=== PATIENT | female | born 1970 | race Caucasian/White ===

== ENCOUNTER 2023-06-28 21:09 | Emergency (ER) | payer OTHER, SELFPAY ==
[2023-06-28 21:12] VITALS: BP 157/101; PULSE 86; RESP 22; TEMP 36.6; O2SAT 98; BMI 37.0
--- NOTE | 2023-06-28 21:24 | CTR_ITS ---
PROCEDURE INFORMATION: Exam: CT Abdomen And Pelvis With Contrast Exam date and time: 06/28/2023 9:50 PM Age: 53 years old Clinical indication: Abdominal pain; Localized; Prior surgery; Surgery date: 1-6 months; Surgery type: Gastric bypass January 2023. Gb; Patient HX: Intractable upper abd pain. ; Additional info: Left upper quadrant abdominal tenderness, history of gastric bypass surgery in January TECHNIQUE: Imaging protocol: Computed tomography of the abdomen and pelvis with contrast. Radiation optimization: All CT scans at this facility use at least one of these dose optimization techniques: automated exposure control; mA and/or kV adjustment per patient size (includes targeted exams where dose is matched to clinical indication); or iterative reconstruction. Contrast material: OMNI 350; Contrast volume: 100 ml; Contrast route: INTRAVENOUS (IV); REPORTING DATA: Count of CT and Cardiac NM exams in prior 12 months: This patient has received 0 known CTs and 0 known cardiac nuclear medicine studies in the 12 months prior to the current study. COMPARISON: CR XR chest 2V* [id number] 08/24/2018 11:27 AM RADIATION DOSE METRICS: Total DLP (mGy-cm): 2361.84 FINDINGS: Lungs: Clear basilar lung parenchyma. Pleural spaces: No pleural fluid. Heart: Normal heart size. Liver: Normal configuration. Homogeneous parenchyma. Gallbladder and bile ducts: Prior cholecystectomy. No biliary tree dilation. Pancreas: Mildly atrophic. No ductal dilation. No visible mass or inflammation. Spleen: Normal. No splenomegaly. Adrenal glands: Normal configuration. Kidneys and ureters: Kidneys enhance symmetrically and demonstrate no evidence of mass, calculus, obstruction, or inflammation. Stomach and bowel: Changes of prior gastric bypass procedure are noted with Marques-en-Y reconstruction. Site of bowel perforation is not clear. No significant diverticular disease. Appendix: Normal appendix is confirmed. Intraperitoneal space: Pneumoperitoneum. Low volume pelvic free fluid. Vasculature: Normal caliber arterial structures. Lymph nodes: No enlarged lymph nodes. Urinary bladder: Unremarkable as visualized. Reproductive: Physiologic appearance for age. Bones/joints: No fracture or destructive lesion. Soft tissues: Loop of nondilated small bowel projects into a supraumbilical ventral hernia. Hernia neck measures 3.[address]/CT abdomen pelvis w con* [id number] IMPRESSION: Exam demonstrates unexplained upper abdominal free air compatible with perforated hollow viscus although the site of perforation is not clear. There could be a marginal ulcer involving the gastrojejunostomy but a discrete ulcer niche is not visible. There is low volume free fluid. No evidence of abscess.
--- NOTE | 2023-06-28 21:25 | W.ED.ABDPA2 ---
Documented by User: [email or web address] Hunter 06/28/23 21:32 HPI - Abdominal Pain General: Chief Complaint: Abdominal Pain Stated Complaint: abdomen pain Time Seen by Provider: 06/28/23 21:14 History of Present Illness: Patient is a 53-year-old female status post gastric bypass surgery in January 2023 who presents to the emergency department for evaluation of left upper quadrant abdominal pain. Patient reports that her symptoms started acutely at approximately 2000 this evening and has continued to progress since onset. Patient denies any known trauma or event that could have elicited her symptoms. Patient states that since the gastric bypass surgery she has had intermittent pains, nausea, and vomiting. Patient states that she has never had pain, however, that has been this severe. She currently rates her pain as a 10 of 10 in severity that she describes as a sharp/stabbing sensation. Patient states that she is in so much pain she feels mildly short of breath. She denies chest pain or palpitations. She denies nausea, vomiting, constipation, diarrhea, dysuria, hematuria, lightheadedness, dizziness, melena, hematochezia, hematemesis, headache, cough, congestion, or any other associated symptoms. No other complaints at this time. Associated Symptoms: Denies chills, constipation, diarrhea, dysuria, fever(s), hematuria, nausea and vomiting Review of Systems General: Reports: 10 or more systems reviewed and unremarkable except in HPI and below Const: Denies: fever(s) or chills Eyes: Denies: change in vision or blurry vision ENMT: Denies: throat pain, ear or mastoid pain, ear discharge, nasal discharge or nasal congestion Card: Denies: chest pain or palpitations Resp: Reports: dyspnea; Denies: productive cough, non-productive cough or wheezing GI: Reports: abdominal pain; Denies: nausea, vomiting, diarrhea or constipation : Denies: flank pain, dysuria or hematuria Musc: Denies: neck pain or back pain Skin/Breast: Denies: rash PFSH ED PFSH: Social History (Updated 02/10/21 @ 14:49 by Reggie Elias LPN) Smoking and tobacco/nicotine status: never used tobacco/nicotine Second hand smoke exposure: No Physical Exam Const: COMMON NORMALS: no acute distress, patient oriented x3 and alert OTHER: Patient is nontoxic and in no acute distress, however, the patient does appear uncomfortable secondary to pain. HENMT: COMMON NORMALS: normocephalic, atraumatic, Normal external nose present, moist oral mucous membranes and oropharynx normal HEAD & SCALP: normocephalic and atraumatic NOSE: Normal external nose present Eye: COMMON NORMALS: Equal, round and reactive pupils present, EOMs intact bilaterally and conjunctivae normal CONJUNCTIVA: Yes conjunctivae normal PUPIL: Yes Equal, round and reactive pupils present Neck/C-Spine: COMMON NORMALS: full ROM Chest: COMMONS NORMALS: normal inspection of the chest Resp: COMMON NORMALS: normal respiratory effort, No retractions, No use of accessory muscles and clear to auscultation bilaterally AUSCULTATION: clear to auscultation bilaterally Cardio: COMMON NORMALS: regular rate, regular rhythm, No gallops present (Cardio), No clicks present (Cardio), No murmurs present (Cardio) and No rub (Cardio) RATE: regular rate RHYTHM: regular rhythm GI: OTHER: Left upper quadrant tenderness noted to palpation. No swelling, erythema, or ecchymosis appreciated to the affected area. Normoactive bowel sounds in all 4 quadrants. No McBurney's point tenderness, Garcia sign, Rovsing sign, or peritoneal signs noted. No evidence of rebound tenderness. No CVA tenderness noted bilaterally. Extremity: OTHER: Moving bilateral upper and lower extremities without weakness or deficit. Neuro: COMMON NORMALS: patient oriented x3 SENSORIUM/ORIENTATION: Yes alert OTHER: Sensation intact to the bilateral upper and lower extremities. No focal neurological deficits noted on exam. Patient is alert and oriented x 4. Course Vital Signs: Vital signs: Vital Signs Temperature 97.8 F 06/28/23 21:12 Pulse Rate 73 06/28/23 22:30 Respiratory Rate 23 H 06/28/23 22:30 Blood Pressure 143/82 06/28/23 22:30 Pulse Oximetry 100 06/28/23 22:30 Oxygen Delivery Me thod Room Air 06/28/23 22:30 MDM - Abdominal Pain Lab Data 06/28/23 21:36 06/28/23 21:36 Labs/Radiology: Radiology Impressions Abdomen/Pelvis CT 06/28/23 21:24 IMPRESSION: Exam demonstrates unexplained upper abdominal free air compatible with perforated hollow viscus although the site of perforation is not clear. There could be a marginal ulcer involving the gastrojejunostomy but a discrete ulcer niche is not visible. There is low volume free fluid. No evidence of abscess. ADDENDUM: 06/28/23 [id number] THIS REPORT CONTAINS FINDINGS THAT MAY BE CRITICAL TO PATIENT CARE. The findings were acknowledged to be understood at 10:07 PM TRANSPORTATION CLERK on 06/28/2023, via the OPS team, by Dr. Cope Laboratory Results WBC 12.03 10^3/uL (3.29-11.43) H 06/28/23 21:36 RBC 4.51 10^6/uL (3.85-5.65) 06/28/23 21:36 Hgb 13.60 g/dL (11.27-16.99) 06/28/23 21:36 Hct 42.1 % (36-47) 06/28/23 21:36 MCV 93.3 fl (85-98) 06/28/23 21:36 MCH 30.2 pg (27-33) 06/28/23 21:36 MCHC 32.3 g/dL (30-55) 06/28/23 21:36 RDW 13.3 % (12.1-15.1) 06/28/23 21:36 Plt Count 407 10^3/cmm (157-399) H 06/28/23 21:36 MPV 9.5 fL (7.4-10.4) 06/28/23 21:36 Neut % (Auto) 66.9 % 06/28/23 21:36 Lymph % (Auto) 22.8 % 06/28/23 21:36 [place] % (Auto) 7.0 % 06/28/23 21:36 Eos % (Auto) 2.7 % 06/28/23 21:36 Baso % (Auto) 0.3 % 06/28/23 21:36 Neut # (Auto) 8.05 10^3/uL (1.8-7.7) H 06/28/23 21:36 Lymph # (Auto) 2.7 10^3/uL (0.8-4.8) 06/28/23 21:36 [place] # (Auto) 0.8 10^3/uL (0.2-0.9) 06/28/23 21:36 Eos # (Auto) 0.3 10^3/uL (0.0-0.8) 06/28/23 21:36 Baso # (Auto) 0.0 10^3/uL (0.0-0.1) 06/28/23 21:36 Nucleated RBC % (auto) 0 % 06/28/23 21:36 Nucleated RBCs # 0.0 /100WBC 06/28/23 21:36 Sodium 138 mmol/L (136-145) 06/28/23 21:36 Potassium 3.9 mmol/L (3.5-5.1) 06/28/23 21:36 Chloride 104 mmol/L (98-107) 06/28/23 21:36 Carbon Dioxide 24 mmol/L (22-29) 06/28/23 21:36 Anion Gap 13.9 (5-19) 06/28/23 21:36 BUN 14 mg/dL (6-20) 06/28/23 21:36 Creatinine 0.5 mg/dL (0.5-0.9) 06/28/23 21:36 GFR Calculation 128.6 mL/min (90-130) 06/28/23 21:36 Glucose 137 mg/dL (65-115) H 06/28/23 21:36 Calculated Osmolality 289 mOsm/kg (285-295) 06/28/23 21:36 Lactic Acid 1.4 mmol/L (0.5-2.2) 06/28/23 21:54 Calcium 9.1 mg/dL (8.5-10.5) 06/28/23 21:36 Total Bilirubin 0.2 mg/dL (0.15-1.2) 06/28/23 21:36 AST 30 U/L (0-32) 06/28/23 21:36 ALT 21 U/L (0-33) 06/28/23 21:36 Alkaline Phosphatase 127 U/L (35-105) H 06/28/23 21:36 Total Protein 7.0 g/dL (6.6-8.7) 06/28/23 21:36 Albumin 3.7 g/dL (3.5-5.2) 06/28/23 21:36 Globulin 3.3 g/dL (1.3-4.6) 06/28/23 21:36 Lipase 15 U/L (13-60) 06/28/23 21:36 Discharge Plan Discharge Patient Disposition: Xfer Short-Term Hosp Clinical Impression: Bowel perforation Condition: Stable Referrals: Seth Ledesma MD [Primary Care Provider] - Coding Level of Care Code ED Medical Office Manager for Chg Fwd Documented by User: Gabriele Cope MD 06/28/23 23:15 HPI - Abdominal Pain General: Chief Complaint: Abdominal Pain Stated Complaint: abdomen pain Time Seen by Provider: 06/28/23 21:14 [facility] ED PFSH: Social History (Updated 02/10/21 @ 14:49 by Reggie Elias LPN) Smoking and tobacco/nicotine status: never used tobacco/nicotine Second hand smoke exposure: No Course Reevaluation(s): Reevaluation #1: I spoke to our surgeon Dr. Campos who recommended transfer due to her having a history of a Marques-en-Y with perforation felt that she needed to be somewhere with bariatric surgery capabilities. I have spoken to [facility] where she had the surgery I spoke with the sustainability project coordinator and the surgeon there she states the ER is on divert they are not able to take her to the ER they do not have ICU beds either 99. I tried [facility] they do not have beds we will attempt to transfer elsewhere at this time patient has been stable while here. Time: 22:30 Vital Signs: Vital signs: Vital Signs Temperature 97.8 F 06/28/23 21:12 Pulse Rate 73 06/28/23 22:30 Respiratory Rate 23 H 06/28/23 22:30 Blood Pressure 143/82 06/28/23 22:30 Pulse Oximetry 100 06/28/23 22:30 Oxygen Delivery Me thod Room Air 06/28/23 22:30 MDM - Abdominal Pain Medical Decision Making Patient presents here with history of gastric bypass Marques-en-Y surgery in January [facility] [place] she had severe pain that started 8 PM she does have a perforation lactate here is normal blood pressure has been stable I did speak to our surgeon Dr. Campos who felt she needed to see bariatric due to the complications of Marques-en-Y when I originally spoke to [facility] they denied do to being on ER divert. I attempted to transfer elsewhere and was denies by [facility] . I called [facility] back and spoke to dr. guerra again and they were able to make a bed in their icu and will transfer there. Medical Records I reviewed the patient's medical records. Lab Data I reviewed the patient's lab results. 06/28/23 21:36 06/28/23 21:36 Labs/Radiology: Radiology Impressions Abdomen/Pelvis CT 06/28/23 21:24 IMPRESSION: Exam demonstrates unexplained upper abdominal free air compatible with perforated hollow viscus although the site of perforation is not clear. There could be a marginal ulcer involving the gastrojejunostomy but a discrete ulcer niche is not visible. There is low volume free fluid. No evidence of abscess. ADDENDUM: 06/28/232209 THIS REPORT CONTAINS FINDINGS THAT MAY BE CRITICAL TO PATIENT CARE. The findings were acknowledged to be understood at 10:07 PM TRANSPORTATION CLERK on 06/28/2023, via the OPS team, by Dr. Cope Laboratory Results WBC 12.03 10^3/uL (3.29-11.43) H 06/28/23 21:36 RBC 4.51 10^6/uL (3.85-5.65) 06/28/23 21:36 Hgb 13.60 g/dL (11.27-16.99) 06/28/23 21:36 Hct 42.1 % (36-47) 06/28/23 21:36 MCV 93.3 fl (85-98) 06/28/23 21:36 MCH 30.2 pg (27-33) 06/28/23 21:36 MCHC 32.3 g/dL (30-55) 06/28/23 21:36 RDW 13.3 % (12.1-15.1) 06/28/23 21:36 Plt Count 407 10^3/cmm (157-399) H 06/28/23 21:36 MPV 9.5 fL (7.4-10.4) 06/28/23 21:36 Neut % (Auto) 66.9 % 06/28/23 21:36 Lymph % (Auto) 22.8 % 06/28/23 21:36 [place] % (Auto) 7.0 % 06/28/23 21:36 Eos % (Auto) 2.7 % 06/28/23 21:36 Baso % (Auto) 0.3 % 06/28/23 21:36 Neut # (Auto) 8.05 10^3/uL (1.8-7.7) H 06/28/23 21:36 Lymph # (Auto) 2.7 10^3/uL (0.8-4.8) 06/28/23 21:36 [place] # (Auto) 0.8 10^3/uL (0.2-0.9) 06/28/23 21:36 Eos # (Auto) 0.3 10^3/uL (0.0-0.8) 06/28/23 21:36 Baso # (Auto) 0.0 10^3/uL (0.0-0.1) 06/28/23 21:36 Nucleated RBC % (auto) 0 % 06/28/23 21:36 Nucleated RBCs # 0.0 /100WBC 06/28/23 21:36 Sodium 138 mmol/L (136-145) 06/28/23 21:36 Potassium 3.9 mmol/L (3.5-5.1) 06/28/23 21:36 Chloride 104 mmol/L (98-107) 06/28/23 21:36 Carbon Dioxide 24 mmol/L (22-29) 06/28/23 21:36 Anion Gap 13.9 (5-19) 06/28/23 21:36 BUN 14 mg/dL (6-20) 06/28/23 21:36 Creatinine 0.5 mg/dL (0.5-0.9) 06/28/23 21:36 GFR Calculation 128.6 mL/min (90-130) 06/28/23 21:36 Glucose 137 mg/dL (65-115) H 06/28/23 21:36 Calculated Osmolality 289 mOsm/kg (285-295) 06/28/23 21:36 Lactic Acid 1.4 mmol/L (0.5-2.2) 06/28/23 21:54 Calcium 9.1 mg/dL (8.5-10.5) 06/28/23 21:36 Total Bilirubin 0.2 mg/dL (0.15-1.2) 06/28/23 21:36 AST 30 U/L (0-32) 06/28/23 21:36 ALT 21 U/L (0-33) 06/28/23 21:36 Alkaline Phosphatase 127 U/L (35-105) H 06/28/23 21:36 Total Protein 7.0 g/dL (6.6-8.7) 06/28/23 21:36 Albumin 3.7 g/dL (3.5-5.2) 06/28/23 21:36 Globulin 3.3 g/dL (1.3-4.6) 06/28/23 21:36 Lipase 15 U/L (13-60) 06/28/23 21:36 All radiology interpretation(s) finalized by discharge Critical Care Time Critical Care Time: Critical Care Time: Yes Total Critical Care Time: 40 Attestation: The high probability of a clinically significant, sudden or life threatening deterioration of the patient's gi system(s) required my full and direct attention, intervention and personal management. The critical care time is as shown. This time is in addition to time spent performing any reported procedures but includes the following: [x] Data and vital sign review and interpretation [x] Patient assessment, examination and intervention [x] Documentation [x] Medication orders and management Discharge Plan Discharge Patient Disposition: Xfer Short-Term Hosp Clinical Impression: Bowel perforation Condition: Stable Referrals: Seth Ledesma MD [Primary Care Provider] - Coding Level of Care Code ED Medical Office Manager for Massimo Meyer
[2023-06-28] MEDS: sodium chloride 0.9% 1,000 ML 999 ML IV (21:35)
[2023-06-28] MEDS: ondansetron 2 mg/ML SDV 2 mL 4 MG IVP (21:36)
[2023-06-28 21:38] VITALS: RESP 16; O2SAT 100
[2023-06-28] MEDS: morphine 4 mg/mL SDV 1 mL IVP (21:38)
[2023-06-28 21:44] LABS: Basophils % 0.3 %; Eosinophils # 0.3 10^3/uL (0.0-0.8); Eosinophils % 2.7 %; Hematocrit 42.1 % (36-47); Lymphocytes # 2.7 10^3/uL (0.8-4.8); Lymphocytes % 22.8 %; Mean Corpuscular HGB Conc 32.3 g/dL (30-55); Mean Corpuscular Hemoglobin 30.2 pg (27-33); Mean Corpuscular Volume 93.3 fl (85-98); Mean Platelet Volume 9.5 fL (7.4-10.4); Monocytes # 0.8 10^3/uL (0.2-0.9); Neutrophils # 8.05 10^3/uL (1.8-7.7); Neutrophils % 66.9 %; Nucleated Red Blood Cells % 0 %; Platelet Count 407 10^3/cmm (157-399); Red Blood Count 4.51 10^6/uL (3.85-5.65); Red Cell Distribution Width 13.3 % (12.1-15.1); White Blood Count 12.03 10^3/uL (3.29-11.43)
[2023-06-28 21:46] VITALS: RESP 18
[2023-06-28] MEDS: HYDROmorphone 1 mg/mL INJ 1 mL IVP ×3 (21:46→23:18)
[2023-06-28] MEDS: iohexol 350 mg/mL 500 mL Btl (per mL) IV (21:54)
[2023-06-28 22:15] LABS: Alanine Aminotransferase 21 U/L (0-33); Albumin Level 3.7 g/dL (3.5-5.2); Alkaline Phosphatase 127 U/L (35-105); Blood Urea Nitrogen 14 mg/dL (6-20); Calcium 9.1 mg/dL (8.5-10.5); Carbon Dioxide 24 mmol/L (22-29); Chloride 104 mmol/L (98-107); Globulin 3.3 g/dL (1.3-4.6); Glomerular Filtration Rate 128.6 mL/min (90-130); Glucose 137 mg/dL (65-115); Lipase 15 U/L (13-60); Osmolality Calculated 289 mOsm/kg (285-295); Sodium 138 mmol/L (136-145); Total Bilirubin 0.2 mg/dL (0.15-1.2)
[2023-06-28 22:17] LABS: Lactic Sepsis W/Reflex 1.4 mmol/L (0.5-2.2)
[2023-06-28] MEDS: piperacillin-tazobactam 3.375 GM in sodium chloride 0.9% (plus) 50 ML IV (22:19)
[2023-06-28 22:22] LABS: Anion Gap 13.9 (5-19); Aspartate Amino Transferase 30 U/L (0-32); Potassium 3.9 mmol/L (3.5-5.1)
[2023-06-28 22:30] VITALS: BP 143/82; PULSE 73; RESP 23; O2SAT 100
[2023-06-28] MEDS: pantoprazole 40 mg SDV 80 MG IVP (23:17)
[2023-06-28 23:18] VITALS: RESP 22
[2023-06-28] MEDS: LORazepam 2 mg/mL INJ 1 mL 1 MG IVP (23:48)
[2023-06-28] MEDS: pantoprazole 40 MG in sodium chloride 0.9% (plus) 100 ML 20 MG IV (23:48)
== END 2023-06-29 00:16 | disposition short-term general hospital (02) ==
PROVIDERS: Physician Assistant; Emergency Provider Emergency Medicine; PCP Family Medicine
DX: K63.1 Perforation of intestine (nontraumatic) (principal); Z98.84 Bariatric surgery status
CPT/HCPCS: 74177; 80053; 83605; 83690; 85025; 96365; 96375; 99285; C9113; J1170; J2060; J2270; J2405; J2543; J7030; Q9967

== ENCOUNTER 2023-10-10 15:05 | Emergency (ER) | payer OTHER, SELFPAY ==
[2023-10-10] VITALS (14 sets, daily range): BP systolic 123–179; BP diastolic 78–114; PULSE 71–100; RESP 18; TEMP 37.2; O2SAT 97–100
[2023-10-10 17:15] LABS: Basophils # 0.1 10^3/uL (0.0-0.1); Basophils % 0.7 %; Eosinophils # 0.2 10^3/uL (0.0-0.8); Eosinophils % 2.5 %; Hematocrit 40.6 % (36-47); Lymphocytes # 1.8 10^3/uL (0.8-4.8); Lymphocytes % 19.8 %; Mean Corpuscular Hemoglobin 29.5 pg (27-33); Mean Corpuscular Volume 92.1 fl (85-98); Mean Platelet Volume 9.6 fL (7.4-10.4); Monocytes % 11.3 %; Neutrophils # 5.99 10^3/uL (1.8-7.7); Neutrophils % 65.5 %; Nucleated Red Blood Cells % 0 %; Platelet Count 343 10^3/cmm (157-399); Red Blood Count 4.41 10^6/uL (3.85-5.65); Red Cell Distribution Width 14.6 % (12.1-15.1); White Blood Count 9.14 10^3/uL (3.29-11.43)
[2023-10-10 17:37] LABS: Alanine Aminotransferase 24 U/L (0-33); Alkaline Phosphatase 149 U/L (35-105); Aspartate Amino Transferase 26 U/L (0-32); Blood Urea Nitrogen 13 mg/dL (6-20); Calcium 9.1 mg/dL (8.5-10.5); Carbon Dioxide 29 mmol/L (22-29); Chloride 104 mmol/L (98-107); Creatinine Clr Calc Pharmacy 90.0737; Globulin 2.9 g/dL (1.3-4.6); Glomerular Filtration Rate 87.2 mL/min (90-130); Glucose 90 mg/dL (65-115); Lipase 17 U/L (13-60); Osmolality Calculated 298 mOsm/kg (285-295); Sodium 144 mmol/L (136-145); Total Bilirubin 0.3 mg/dL (0.15-1.2); Total Protein 6.9 g/dL (6.6-8.7)
--- NOTE | 2023-10-10 18:54 | CTR_ITS ---
PROCEDURE INFORMATION: Exam: CT Abdomen And Pelvis With Contrast Exam date and time: 10/10/2023 7:15 PM Age: 53 years old Clinical indication: Nausea and vomiting; Abdominal pain; Epigastric; Prior surgery; Surgery date: 6+ months; Surgery type: Gastric bypass; Additional info: Epigastric pain, n/v HX of gastric bypass, perforated ulcer TECHNIQUE: Imaging protocol: Computed tomography of the abdomen and pelvis with contrast. Radiation optimization: All CT scans at this facility use at least one of these dose optimization techniques: automated exposure control; mA and/or kV adjustment per patient size (includes targeted exams where dose is matched to clinical indication); or iterative reconstruction. Contrast material: OMNI 350; Contrast volume: 100 ml; Contrast route: INTRAVENOUS (IV); COMPARISON: CT abdomen pelvis w con* [id number] 06/28/2023 9:50 PM RADIATION DOSE METRICS: Total DLP (mGy-cm): 603.09 FINDINGS: Liver: Hepatic steatosis. Gallbladder and bile ducts: Cholecystectomy. Pancreas: Normal. No ductal dilation. Spleen: Normal. No splenomegaly. Adrenal glands: Normal. No mass. Kidneys and ureters: Normal. No hydronephrosis. Stomach and bowel: Prominent fluid in the stomach and small bowel may reflect a gastroenteritis. Appendix: No evidence of appendicitis. Intraperitoneal space: Unremarkable. No free air. No significant fluid collection. Vasculature: Unremarkable. No abdominal aortic aneurysm. Lymph nodes: Unremarkable. No enlarged lymph nodes. Urinary bladder: Unremarkable as visualized. Reproductive: Unremarkable as visualized. Bones/joints: Unremarkable. No acute fracture. Soft tissues: Small umbilical hernia containing omentum without bowel. Other findings: Trace nonspecific fluid in the pelvis. CT/CT abdomen pelvis w con* [id number] IMPRESSION: 1. Prominent fluid in the stomach and small bowel may reflect a gastroenteritis. 2. Small umbilical hernia containing omentum without bowel. 3. Trace nonspecific fluid in the pelvis. 4. Cholecystectomy. 5. Hepatic steatosis.
[2023-10-10] MEDS: iohexol 350 mg/mL 500 mL Btl (per mL) IV (19:11)
[2023-10-10] MEDS: sodium chloride 0.9% 1,000 ML 999 ML IV (19:21)
--- NOTE | 2023-10-10 20:01 | ED_ITS ---
Documented by User: Javed Ron DO 10/10/23 20:03 HPI - Abdominal Pain 2 General: Chief Complaint: Abdominal Pain Stated Complaint: abd pain, N Time Seen by Provider: 10/10/23 18:34 History of Present Illness: Patient reports to the ER with mid abdominal epigastric pain she said this been going on for the last 3 to 4 days. Patient rates pain an 8. Patient has been having lots of nausea. Patient not been able to keep foods or fluids down. Patient is a gastric bypass of roughly a year ago and around about 6 months ago she had a GI perforation. She said the pain is different now than it was then. Now it is more central abdominal radiating to her back where the perforation was more left-sided. Patient states crawl up in a position does help but in straightening out makes it worse. Review of Systems 2 General: Reports: 10 or more systems reviewed and unremarkable except in HPI and below PFSH ED 2 PFSH: Social History Smoking and tobacco/nicotine status: never used tobacco/nicotine Second hand smoke exposure: No Physical Exam 2 Const: COMMON NORMALS: no acute distress, average body habitus, patient oriented x3, no limitations, healthy appearing, alert and well nourished HENMT: COMMON NORMALS: normocephalic, atraumatic, hearing grossly normal bilaterally, external ears normal, Normal external nose present, moist oral mucous membranes and oropharynx normal HEAD & SCALP: normocephalic and atraumatic NOSE: Normal external nose present EXTERNAL EAR: Yes external ears normal Neck/C-Spine: COMMON NORMALS: no JVD Chest: COMMONS NORMALS: normal inspection of the chest and normal palpation of entire chest wall Resp: COMMON NORMALS: normal respiratory effort, No retractions, No use of accessory muscles and clear to auscultation bilaterally AUSCULTATION: clear to auscultation bilaterally Cardio: COMMON NORMALS: no JVD, regular rate, regular rhythm, S1 normal heart sound present, S2 normal heart sound present, No gallops present (Cardio), No clicks present (Cardio), No murmurs present (Cardio) and No rub (Cardio) R ATE: regular rate RHYTHM: regular rhythm HEART SOUNDS: S1 normal heart sound present and S2 normal heart sound present GI: COMMON NORMALS: Normal to inspection, nondistended, normoactive bowel sounds present, Soft to palpation, non-tender, No hepatosplenomegaly present and no masses PALPATION: Yes Soft to palpation and Yes No hepatosplenomegaly present Neuro: COMMON NORMALS: patient oriented x3 SENSORIUM/ORIENTATION: Yes alert Course 2 Vital Signs: Vital signs: Vital Signs Temperature 99 F 10/10/23 15:26 Pulse Rate 78 10/10/23 23:29 Respiratory Rate 18 10/10/23 20:56 Blood Pressure 137/79 10/10/23 23:29 Pulse Oximetry 98 10/10/23 23:29 Oxygen Delivery Me thod Room Air 10/10/23 23:00 MDM - Abdominal Pain Differential Diagnosis Likely abdominal pain; Unlikely acute appendicitis, calculus of kidney, constipation, diverticulitis, endometriosis, gastroenteritis, pancreatitis or small bowel obstruction Medical Records I reviewed the patient's medical records. Lab Data I reviewed the patient's lab results. 10/10/23 16:50 10/10/23 16:50 Labs/Radiology: Radiology Impressions Abdomen/Pelvis CT 10/10/23 18:54 IMPRESSION: 1. Prominent fluid in the stomach and small bowel may reflect a gastroenteritis. 2. Small umbilical hernia containing omentum without bowel. 3. Trace nonspecific fluid in the pelvis. 4. Cholecystectomy. 5. Hepatic steatosis. Laboratory Results WBC 9.14 10^3/uL (3.29-11.43) 10/10/23 16:50 RBC 4.41 10^6/uL (3.85-5.65) 10/10/23 16:50 Hgb 13.00 g/dL (11.27-16.99) 10/10/23 16:50 Hct 40.6 % (36-47) 10/10/23 16:50 MCV 92.1 fl (85-98) 10/10/23 16:50 MCH 29.5 pg (27-33) 10/10/23 16:50 MCHC 32.0 g/dL (30-55) 10/10/23 16:50 RDW 14.6 % (12.1-15.1) 10/10/23 16:50 Plt Count 343 10^3/cmm (157-399) 10/10/23 16:50 MPV 9.6 fL (7.4-10.4) 10/10/23 16:50 Neut % (Auto) 65.5 % 10/10/23 16:50 Lymph % (Auto) 19.8 % 10/10/23 16:50 [place] % (Auto) 11.3 % 10/10/23 16:50 Eos % (Auto) 2.5 % 10/10/23 16:50 Baso % (Auto) 0.7 % 10/10/23 16:50 Neut # (Auto) 5.99 10^3/uL (1.8-7.7) 10/10/23 16:50 Lymph # (Auto) 1.8 10^3/uL (0.8-4.8) 10/10/23 16:50 [place] # (Auto) 1.0 10^3/uL (0.2-0.9) H 10/10/23 16:50 Eos # (Auto) 0.2 10^3/uL (0.0-0.8) 10/10/23 16:50 Baso # (Auto) 0.1 10^3/uL (0.0-0.1) 10/10/23 16:50 Nucleated RBC % (auto) 0 % 10/10/23 16:50 Nucleated RBCs # 0.0 /100WBC 10/10/23 16:50 Sodium 144 mmol/L (136-145) 10/10/23 16:50 Potassium 4.0 mmol/L (3.5-5.1) 10/10/23 16:50 Chloride 104 mmol/L (98-107) 10/10/23 16:50 Carbon Dioxide 29 mmol/L (22-29) 10/10/23 16:50 Anion Gap 15.0 (5-19) 10/10/23 16:50 BUN 13 mg/dL (6-20) 10/10/23 16:50 Creatinine 0.7 mg/dL (0.5-0.9) 10/10/23 16:50 GFR Calculation 87.2 mL/min (90-130) L 10/10/23 16:50 Glucose 90 mg/dL (65-115) 10/10/23 16:50 Calculated Osmolality 298 mOsm/kg (285-295) H 10/10/23 16:50 Calcium 9.1 mg/dL (8.5-10.5) 10/10/23 16:50 Total Bilirubin 0.3 mg/dL (0.15-1.2) 10/10/23 16:50 AST 26 U/L (0-32) 10/10/23 16:50 ALT 24 U/L (0-33) 10/10/23 16:50 Alkaline Phosphatase 149 U/L (35-105) H 10/10/23 16:50 Total Protein 6.9 g/dL (6.6-8.7) 10/10/23 16:50 Albumin 4.0 g/dL (3.5-5.2) 10/10/23 16:50 Globulin 2.9 g/dL (1.3-4.6) 10/10/23 16:50 Lipase 17 U/L (13-60) 10/10/23 16:50 Urine Color Yellow (Yellow) 10/10/23 22:00 Urine Appearance Clear (CLEAR) 10/10/23 22:00 Urine pH 6 (5-7) 10/10/23 22:00 Ur Specific [place] 1.010 (1.005-1.030) 10/10/23 22:00 Urine Protein Neg (Negative) 10/10/23 22:00 Urine Glucose (UA) Norm (Normal) 10/10/23 22:00 Urine Ketones 1+ (Negative) H 10/10/23 22:00 Urine Blood Neg (Negative) 10/10/23 22:00 Urine Nitrate Negative (Negative) 10/10/23 22:00 Urine Bilirubin 1+ (Negative) H 10/10/23 22:00 Urine Urobilinogen 1 mg/dL (Negative) H 10/10/23 22:00 Ur Leukocyte Esterase Trace (Negative) H 10/10/23 22:00 Urine RBC 0-4 /hpf (0-2) H 10/10/23 22:00 Urine WBC 0-4 /hpf (0-5) H 10/10/23 22:00 Ur Squamous Epith Cells 10-15 /hpf (0-5) H 10/10/23 22:00 Amorphous Sediment Not Reportable 10/10/23 22:00 Urine Bacteria Trace /hpf (NONE) 10/10/23 22:00 Urine Mucus 2+ /hpf 10/10/23 22:00 Discharge Plan Discharge Patient Disposition: Home Clinical Impression: Gastroenteritis, Nausea Condition: Stable Prescriptions: New ondansetron HCl 4 mg tablet 4 mg PO Q12H 5 Days Qty: 10 0RF No Action clonazepam 1 mg tablet 1 mg PO BID lisinopril-hydrochlorothiazide 20-25 mg tablet 1 tab PO BID cholecalciferol (vitamin D3) 25 mcg (1,000 unit) capsule 25 mcg PO DAILY bupropion HCl [Wellbutrin XL] 300 mg tablet extended release 24 hr 300 mg PO QAM Qty: 30 2RF fluoxetine [Prozac] 20 mg capsule 60 mg PO DAILY Qty: 90 2RF Discharge Orders: Discharge ED (Routine); Ordered 10/10/23 Ordered By: Domingo Doll Referrals: Seth Ledesma MD [Primary Care Provider] - Discharge Diet: Usual diet Discharge Activity: Resume usual activity Patient Instructions: Opioid Safety, Pain Management Activity Restrictions/Additional Instructions: Activity Restrictions/Additional Instructions: Thank you for choosing [facility] for your healthcare needs today. Please realize that you were seen in the Emergency Department and that we are providing you with an emergency medical screening exam and this may not be a complete and all inclusive of all the testing and or medical work-up that you may need to determine your ailment or severity of your illness. It is very important that you follow-up as instructed with your Primary care provider or Specialist for additional evaluation and to discuss your medical treatment plan. Coding Level of Care Code ED Parking Officer for Chg Fwd Documented by User: Domingo Doll MD 10/13/23 13:45 HPI - Abdominal Pain 2 General: Chief Complaint: Abdominal Pain Stated Complaint: abd pain, N Time Seen by Provider: 10/10/23 18:34 History of Present Illness: Associated Symptoms: Reports nausea Review of Systems 2 GI: Reports: abdominal pain and nausea PFSH ED 2 PFSH: Social History Smoking and tobacco/nicotine status: never used tobacco/nicotine Second hand smoke exposure: No Course 2 Vital Signs: Vital signs: Vital Signs Temperature 99 F 10/10/23 15:26 Pulse Rate 78 10/10/23 23:29 Respiratory Rate 18 10/10/23 20:56 Blood Pressure 137/79 10/10/23 23:29 Pulse Oximetry 98 10/10/23 23:29 Oxygen Delivery Me thod Room Air 10/10/23 23:00 MDM - Abdominal Pain Medical Decision Making I have discussed the patient's case with the off going physician <Dr. Ron> and I have assumed care of the patient. We have discussed the current lab/radiographic results that have been resulted and the pending tests. Lab Data 10/10/23 16:50 10/10/23 16:50 Labs/Radiology: Radiology Impressions Abdomen/Pelvis CT 10/10/23 18:54 IMPRESSION: 1. Prominent fluid in the stomach and small bowel may reflect a gastroenteritis. 2. Small umbilical hernia containing omentum without bowel. 3. Trace nonspecific fluid in the pelvis. 4. Cholecystectomy. 5. Hepatic steatosis. Laboratory Results WBC 9.14 10^3/uL (3.29-11.43) 10/10/23 16:50 RBC 4.41 10^6/uL (3.85-5.65) 10/10/23 16:50 Hgb 13.00 g/dL (11.27-16.99) 10/10/23 16:50 Hct 40.6 % (36-47) 10/10/23 16:50 MCV 92.1 fl (85-98) 10/10/23 16:50 MCH 29.5 pg (27-33) 10/10/23 16:50 MCHC 32.0 g/dL (30-55) 10/10/23 16:50 RDW 14.6 % (12.1-15.1) 10/10/23 16:50 Plt Count 343 10^3/cmm (157-399) 10/10/23 16:50 MPV 9.6 fL (7.4-10.4) 10/10/23 16:50 Neut % (Auto) 65.5 % 10/10/23 16:50 Lymph % (Auto) 19.8 % 10/10/23 16:50 [place] % (Auto) 11.3 % 10/10/23 16:50 Eos % (Auto) 2.5 % 10/10/23 16:50 Baso % (Auto) 0.7 % 10/10/23 16:50 Neut # (Auto) 5.99 10^3/uL (1.8-7.7) 10/10/23 16:50 Lymph # (Auto) 1.8 10^3/uL (0.8-4.8) 10/10/23 16:50 [place] # (Auto) 1.0 10^3/uL (0.2-0.9) H 10/10/23 16:50 Eos # (Auto) 0.2 10^3/uL (0.0-0.8) 10/10/23 16:50 Baso # (Auto) 0.1 10^3/uL (0.0-0.1) 10/10/23 16:50 Nucleated RBC % (auto) 0 % 10/10/23 16:50 Nucleated RBCs # 0.0 /100WBC 10/10/23 16:50 Sodium 144 mmol/L (136-145) 10/10/23 16:50 Potassium 4.0 mmol/L (3.5-5.1) 10/10/23 16:50 Chloride 104 mmol/L (98-107) 10/10/23 16:50 Carbon Dioxide 29 mmol/L (22-29) 10/10/23 16:50 Anion Gap 15.0 (5-19) 10/10/23 16:50 BUN 13 mg/dL (6-20) 10/10/23 16:50 Creatinine 0.7 mg/dL (0.5-0.9) 10/10/23 16:50 GFR Calculation 87.2 mL/min (90-130) L 10/10/23 16:50 Glucose 90 mg/dL (65-115) 10/10/23 16:50 Calculated Osmolality 298 mOsm/kg (285-295) H 10/10/23 16:50 Calcium 9.1 mg/dL (8.5-10.5) 10/10/23 16:50 Total Bilirubin 0.3 mg/dL (0.15-1.2) 10/10/23 16:50 AST 26 U/L (0-32) 10/10/23 16:50 ALT 24 U/L (0-33) 10/10/23 16:50 Alkaline Phosphatase 149 U/L (35-105) H 10/10/23 16:50 Total Protein 6.9 g/dL (6.6-8.7) 10/10/23 16:50 Albumin 4.0 g/dL (3.5-5.2) 10/10/23 16:50 Globulin 2.9 g/dL (1.3-4.6) 10/10/23 16:50 Lipase 17 U/L (13-60) 10/10/23 16:50 Urine Color Yellow (Yellow) 10/10/23 22:00 Urine Appearance Clear (CLEAR) 10/10/23 22:00 Urine pH 6 (5-7) 10/10/23 22:00 Ur Specific [place] 1.010 (1.005-1.030) 10/10/23 22:00 Urine Protein Neg (Negative) 10/10/23 22:00 Urine Glucose (UA) Norm (Normal) 10/10/23 22:00 Urine Ketones 1+ (Negative) H 10/10/23 22:00 Urine Blood Neg (Negative) 10/10/23 22:00 Urine Nitrate Negative (Negative) 10/10/23 22:00 Urine Bilirubin 1+ (Negative) H 10/10/23 22:00 Urine Urobilinogen 1 mg/dL (Negative) H 10/10/23 22:00 Ur Leukocyte Esterase Trace (Negative) H 10/10/23 22:00 Urine RBC 0-4 /hpf (0-2) H 10/10/23 22:00 Urine WBC 0-4 /hpf (0-5) H 10/10/23 22:00 Ur Squamous Epith Cells 10-15 /hpf (0-5) H 10/10/23 22:00 Amorphous Sediment Not Reportable 10/10/23 22:00 Urine Bacteria Trace /hpf (NONE) 10/10/23 22:00 Urine Mucus 2+ /hpf 10/10/23 22:00 All radiology interpretation(s) finalized by discharge Discharge Plan Discharge Patient Disposition: Home Clinical Impression: Gastroenteritis, Nausea Condition: Stable Prescriptions: New ondansetron HCl 4 mg tablet 4 mg PO Q12H 5 Days Qty: 10 0RF No Action clonazepam 1 mg tablet 1 mg PO BID lisinopril-hydrochlorothiazide 20-25 mg tablet 1 tab PO BID cholecalciferol (vitamin D3) 25 mcg (1,000 unit) capsule 25 mcg PO DAILY bupropion HCl [Wellbutrin XL] 300 mg tablet extended release 24 hr 300 mg PO QAM Qty: 30 2RF fluoxetine [Prozac] 20 mg capsule 60 mg PO DAILY Qty: 90 2RF Discharge Orders: Discharge ED (Routine); Ordered 10/10/23 Ordered By: Domingo Doll Referrals: Seth Ledesma MD [Primary Care Provider] - Discharge Diet: Usual diet Discharge Activity: Resume usual activity Patient Instructions: Opioid Safety, Pain Management Activity Restrictions/Additional Instructions: Activity Restrictions/Additional Instructions: Thank you for choosing [facility] for your healthcare needs today. Please realize that you were seen in the Emergency Department and that we are providing you with an emergency medical screening exam and this may not be a complete and all inclusive of all the testing and or medical work-up that you may need to determine your ailment or severity of your illness. It is very important that you follow-up as instructed with your Primary care provider or Specialist for additional evaluation and to discuss your medical treatment plan. Coding Level of Care Code ED Parking Officer for Massimo Meyer
[2023-10-10] MEDS: ondansetron 2 mg/ML SDV 2 mL 4 MG IVP (20:50)
[2023-10-10] MEDS: morphine 4 mg/mL SDV 1 mL IVP (20:56)
[2023-10-10] MEDS: dicyclomine 20 mg Tablet PO (21:54)
[2023-10-10] MEDS: ketorolac 30 mg/mL INJ IVP (22:00)
[2023-10-10 22:12] LABS: Add Urine Microscopic? YES; Bilirubin Urine 1+ (Negative); Blood Urine Neg (Negative); Glucose Urine UA Norm (Normal); Ketones Urine 1+ (Negative); Leukocyte Esterase Urine Trace (Negative); Nitrate Urine Negative (Negative); Protein Urine Neg (Negative); Urine Appearance Clear (CLEAR); Urine Color Yellow (Yellow); Urobilinogen Urine 1 mg/dL (Negative); pH Urine 6 (5-7)
[2023-10-10 22:13] LABS: Add Urine Culture? No; Bacteria Urine TRACE /hpf; Mucus Urine 2+ /hpf; RBC Urine 0-4 /hpf (0-2); WBC Urine 0-4 /hpf (0-5)
== END 2023-10-10 23:30 | disposition home or self-care (01) ==
PROVIDERS: Nurse Practitioner Family; Emergency Provider Internal Medicine; PCP Family Medicine
DX: K52.9 Noninfective gastroenteritis and colitis, unspecified (principal); R11.0 Nausea
CPT/HCPCS: 36415; 74177; 80053; 81001; 83690; 85025; 96374; 96375; 99285; J1885; J2270; J2405; J7030; Q9967

== ENCOUNTER 2024-01-25 01:43 | Emergency (ER) | payer OTHER, SELFPAY ==
[2024-01-25 01:52] VITALS: BP 123/88; PULSE 90; RESP 18; TEMP 36.6; O2SAT 97; BMI 24.7
--- NOTE | 2024-01-25 02:04 | CTR_ITS ---
PROCEDURE INFORMATION: Exam: CT Abdomen And Pelvis With Contrast Exam date and time: 01/25/2024 2:20 AM Age: 53 years old Clinical indication: Nausea and vomiting; Abdominal pain; Localized; Left upper quadrant (luq); Prior surgery; Surgery date: 6+ months; Surgery type: Gb. Gastric bypass. Patient HX: C/O luq pain with n/v. History of bowel perforation. ; Additional info: Luq abd pain, n/v, HX of perf, gastric bypass TECHNIQUE: Imaging protocol: Computed tomography of the abdomen and pelvis with contrast. Radiation optimization: All CT scans at this facility use at least one of these dose optimization techniques: automated exposure control; mA and/or kV adjustment per patient size (includes targeted exams where dose is matched to clinical indication); or iterative reconstruction. Contrast material: OMNI 350; Contrast volume: 100 ml; Contrast route: INTRAVENOUS (IV); COMPARISON: CT abdomen pelvis w con* [id number] 10/10/2023 7:15 PM RADIATION DOSE METRICS: Total DLP (mGy-cm): 1555.97 FINDINGS: Lungs: Clear basilar lung parenchyma. Pleural spaces: No pleural fluid. Heart: Normal heart size. Liver: Normal configuration. Homogeneous parenchyma. Gallbladder and biliary ducts: Prior cholecystectomy. No biliary tree dilation or high-density retained stones appreciated. Pancreas: Normal. No ductal dilation. Spleen: Normal spleen measures 9.5 cm in length. Adrenal glands: Normal configuration. Kidneys and ureters: Kidneys enhance symmetrically and demonstrate no evidence of mass, calculus, obstruction, or inflammation. Stomach and bowel: There are changes of gastric bypass with Marques-en-Y reconstruction. There is edema the gastric pouch. The proximal jejunum demonstrates mural thickening which is accentuated from prior. There is no visible jejunal ulcer. Normal caliber small bowel. Appendix: Normal appendix is confirmed. Intraperitoneal space: No free air. No significant fluid collection. Vasculature: Normal caliber arterial structures. Lymph nodes: There are several enhancing lymph nodes in the left upper quadrant mesentery. Urinary bladder: Unremarkable as visualized. Reproductive: Physiologic appearance for age. Bones/joints: No fracture or destructive lesion. Soft tissues: Unremarkable. CT/CT abdomen pelvis w con* [id number] IMPRESSION: There is mural thickening of the gastric pouch and proximal jejunum in this patient who is had gastrojejunostomy bypass. Marginal ulcer is not visible but findings could reflect acid peptic disease or other inflammatory process.
[2024-01-25] MEDS: morphine 4 mg/mL SDV 1 mL IVP (02:13)
[2024-01-25] MEDS: sodium chloride 0.9% 1,000 ML 999 ML IV (02:13)
[2024-01-25 02:14] LABS: Basophils # 0.1 10^3/uL (0.0-0.1); Basophils % 0.8 %; Eosinophils # 0.3 10^3/uL (0.0-0.8); Eosinophils % 3.5 %; Hematocrit 38.2 % (36-47); Lymphocytes # 1.9 10^3/uL (0.8-4.8); Lymphocytes % 22.4 %; Mean Corpuscular HGB Conc 32.7 g/dL (30-55); Mean Corpuscular Volume 91.6 fl (85-98); Mean Platelet Volume 9.1 fL (7.4-10.4); Monocytes # 0.9 10^3/uL (0.2-0.9); Monocytes % 10.8 %; Neutrophils # 5.28 10^3/uL (1.8-7.7); Neutrophils % 62.4 %; Nucleated Red Blood Cells % 0 %; Platelet Count 301 10^3/cmm (157-399); Red Blood Count 4.17 10^6/uL (3.85-5.65); Red Cell Distribution Width 12.7 % (12.1-15.1); White Blood Count 8.48 10^3/uL (3.29-11.43)
[2024-01-25] MEDS: iohexol 350 mg/mL 500 mL Btl (per mL) IV (02:22)
[2024-01-25 02:24] VITALS: PULSE 75; RESP 16; O2SAT 100
--- NOTE | 2024-01-25 02:26 | ED_ITS ---
HPI - Abdominal Pain 2 General: Chief Complaint: Abdominal Pain Stated Complaint: Side/abd pain Time Seen by Provider: 01/25/24 02:00 History of Present Illness: Patient presents to the ER with complaints of left upper quadrant abdominal pain. Patient has had this chronically for approximately a year. Patient has a history of a perforation that was repaired surgically and then had a gastric bypass done approximate year ago and has had problems ever since. Patient was seen approximately 3 months ago for the exact same thing here he was told to be a virus and she was sent home. Patient is still having the same pain with no difference. Review of Systems 2 General: Reports: 10 or more systems reviewed and unremarkable except in HPI and below PFSH ED 2 PFSH: Social History Smoking and tobacco/nicotine status: never used tobacco/nicotine Second hand smoke exposure: No Physical Exam 2 Const: COMMON NORMALS: no acute distress, average body habitus, patient oriented x3, no limitations, healthy appearing, alert and well nourished HENMT: COMMON NORMALS: normocephalic, atraumatic, hearing grossly normal bilaterally, external ears normal, Normal external nose present and moist oral mucous membranes HEAD & SCALP: normocephalic and atraumatic NOSE: Normal external nose present EXTERNAL EAR: Yes external ears normal Neck/C-Spine: COMMON NORMALS: no JVD Chest: COMMONS NORMALS: normal inspection of the chest and normal palpation of entire chest wall Resp: COMMON NORMALS: normal respiratory effort, No retractions, No use of accessory muscles and clear to auscultation bilaterally AUSCULTATION: clear to auscultation bilaterally Cardio: COMMON NORMALS: no JVD, regular rate, regular rhythm, S1 normal heart sound present, S2 normal heart sound present, No gallops present (Cardio), No clicks present (Cardio), No murmurs present (Cardio) and No rub (Cardio) R ATE: regular rate RHYTHM: regular rhythm HEART SOUNDS: S1 normal heart sound present and S2 normal heart sound present GI: COMMON NORMALS: Normal to inspection, nondistended, normoactive bowel sounds present, Soft to palpation, No hepatosplenomegaly present and no masses; negative for non-tender (Tender to palpate left upper quadrant reproduces pain) PALPATION: Yes Soft to palpation and Yes No hepatosplenomegaly present Neuro: COMMON NORMALS: patient oriented x3 SENSORIUM/ORIENTATION: Yes alert Course 2 Vital Signs: Vital signs: Vital Signs Temperature 98 F 01/25/24 01:52 Pulse Rate 90 01/25/24 01:52 Respiratory Rate 18 01/25/24 01:52 Blood Pressure 123/88 01/25/24 01:52 Pulse Oximetry 97 01/25/24 01:52 MDM - Abdominal Pain Medical Decision Making Patient lab work was essentially benign. His abdominal pelvis CT scan with contrast that showed thickening of the gastric pouch and proximal jejunum patible with peptic acid disease. Patient was given GI cocktail which she said helped more than anything. Patient was also given Pepcid and Protonix. After discussing with the patient these results she said that she had an acid study done at 1 time and she produced too much acid this was before the gastric bypass and then she had the ulceration after the gastric bypass after they took her off her Protonix and after the ulceration they put her on Carafate for 3 months but then it took her off and every time she stopped these medicines she is tended to get worse. Differential Diagnosis Likely abdominal pain Lab Data I reviewed the patient's lab results. 01/25/24 02:07 01/25/24 02:07 Labs/Radiology: Radiology Impressions Abdomen/Pelvis CT 01/25/24 02:04 IMPRESSION: There is mural thickening of the gastric pouch and proximal jejunum in this patient who is had gastrojejunostomy bypass. Marginal ulcer is not visible but findings could reflect acid peptic disease or other inflammatory process. Laboratory Results WBC 8.48 10^3/uL (3.29-11.43) 01/25/24 02:07 RBC 4.17 10^6/uL (3.85-5.65) 01/25/24 02:07 Hgb 12.50 g/dL (11.27-16.99) 01/25/24 02:07 Hct 38.2 % (36-47) 01/25/24 02:07 MCV 91.6 fl (85-98) 01/25/24 02:07 MCH 30.0 pg (27-33) 01/25/24 02:07 MCHC 32.7 g/dL (30-55) 01/25/24 02:07 RDW 12.7 % (12.1-15.1) 01/25/24 02:07 Plt Count 301 10^3/cmm (157-399) 01/25/24 02:07 MPV 9.1 fL (7.4-10.4) 01/25/24 02:07 Neut % (Auto) 62.4 % 01/25/24 02:07 Lymph % (Auto) 22.4 % 01/25/24 02:07 [place] % (Auto) 10.8 % 01/25/24 02:07 Eos % (Auto) 3.5 % 01/25/24 02:07 Baso % (Auto) 0.8 % 01/25/24 02:07 Neut # (Auto) 5.28 10^3/uL (1.8-7.7) 01/25/24 02:07 Lymph # (Auto) 1.9 10^3/uL (0.8-4.8) 01/25/24 02:07 [place] # (Auto) 0.9 10^3/uL (0.2-0.9) 01/25/24 02:07 Eos # (Auto) 0.3 10^3/uL (0.0-0.8) 01/25/24 02:07 Baso # (Auto) 0.1 10^3/uL (0.0-0.1) 01/25/24 02:07 Nucleated RBC % (auto) 0 % 01/25/24 02:07 Nucleated RBCs # 0.0 /100WBC 01/25/24 02:07 Sodium 141 mmol/L (136-145) 01/25/24 02:07 Potassium 3.5 mmol/L (3.5-5.1) 01/25/24 02:07 Chloride 103 mmol/L (98-107) 01/25/24 02:07 Carbon Dioxide 26 mmol/L (22-29) 01/25/24 02:07 Anion Gap 15.5 (5-19) 01/25/24 02:07 BUN 15 mg/dL (6-20) 01/25/24 02:07 Creatinine 0.7 mg/dL (0.5-0.9) 01/25/24 02:07 GFR Calculation 87.2 mL/min (90-130) L 01/25/24 02:07 Glucose 106 mg/dL (65-115) 01/25/24 02:07 Calculated Osmolality 293 mOsm/kg (285-295) 01/25/24 02:07 Calcium 8.9 mg/dL (8.5-10.5) 01/25/24 02:07 Magnesium 2.0 mg/dL (1.7-2.3) 01/25/24 02:07 Total Bilirubin 0.2 mg/dL (0.15-1.2) 01/25/24 02:07 AST 24 U/L (0-32) 01/25/24 02:07 ALT 17 U/L (0-33) 01/25/24 02:07 Alkaline Phosphatase 126 U/L (35-105) H 01/25/24 02:07 Total Protein 7.0 g/dL (6.6-8.7) 01/25/24 02:07 Albumin 3.7 g/dL (3.5-5.2) 01/25/24 02:07 Globulin 3.3 g/dL (1.3-4.6) 01/25/24 02:07 Lipase 19 U/L (13-60) 01/25/24 02:07 Urine Color Dark yellow (Yellow) A 01/25/24 03:18 Urine Appearance Clear (CLEAR) 01/25/24 03:18 Urine pH 5 (5-7) 01/25/24 03:18 Ur Specific [place] 1.010 (1.005-1.030) 01/25/24 03:18 Urine Protein Trace (Negative) 01/25/24 03:18 Urine Glucose (UA) Norm (Normal) 01/25/24 03:18 Urine Ketones 1+ (Negative) H 01/25/24 03:18 Urine Blood Neg (Negative) 01/25/24 03:18 Urine Nitrate Negative (Negative) 01/25/24 03:18 Urine Bilirubin Neg (Negative) 01/25/24 03:18 Urine Urobilinogen 4 mg/dL (Negative) H 01/25/24 03:18 Ur Leukocyte Esterase Negative (Negative) 01/25/24 03:18 Urine RBC 0-4 /hpf (0-2) H 01/25/24 03:18 Urine WBC 5-10 /hpf (0-5) H 01/25/24 03:18 Ur Squamous Epith Cells 5-10 /hpf (0-5) H 01/25/24 03:18 Amorphous Sediment Not Reportable 01/25/24 03:18 Urine Bacteria 1+ /hpf (NONE) H 01/25/24 03:18 Hyaline Casts 5-10 /lpf H 01/25/24 03:18 Urine Mucus 1+ /hpf 01/25/24 03:18 All radiology interpretation(s) finalized by discharge Discharge Plan Discharge Patient Disposition: Home Clinical Impression: Gastritis Qualifiers: Gastritis type: unspecified gastritis Chronicity: acute Gastritis bleeding: w ithout bleeding Qualified Code(s): K29.00 - Acute gastritis without bleeding Condition: Stable Prescriptions: New famotidine [Pepcid] 40 mg tablet 40 mg PO BID Qty: 30 0RF pantoprazole [Protonix] 40 mg tablet,delayed release (DR/EC) 40 mg PO DAILY Qty: 30 0RF No Action clonazepam 1 mg tablet 1 mg PO BID lisinopril-hydrochlorothiazide 20-25 mg tablet 1 tab PO BID cholecalciferol (vitamin D3) 25 mcg (1,000 unit) capsule 25 mcg PO DAILY bupropion HCl [Wellbutrin XL] 300 mg tablet extended release 24 hr 300 mg PO QAM Qty: 30 2RF fluoxetine [Prozac] 20 mg capsule 60 mg PO DAILY Qty: 90 2RF Discharge Orders: Discharge ED (Routine); Ordered 01/25/24 Ordered By: Javed Ron Referrals: Seth Ledesma MD [Primary Care Provider] - 1 week Patient Instructions: Gastritis (ED) Activity Restrictions/Additional Instructions: Please take your medicines as directed. It may be that you need to stay on these medicines indefinitely as they seem to help your acid production and gastritis. Coding Level of Care Code ED Mortgage Loan Funder for Massimo Meyer
[2024-01-25 02:33] LABS: Alanine Aminotransferase 17 U/L (0-33); Albumin Level 3.7 g/dL (3.5-5.2); Alkaline Phosphatase 126 U/L (35-105); Anion Gap 15.5 (5-19); Aspartate Amino Transferase 24 U/L (0-32); Blood Urea Nitrogen 15 mg/dL (6-20); Calcium 8.9 mg/dL (8.5-10.5); Carbon Dioxide 26 mmol/L (22-29); Chloride 103 mmol/L (98-107); Creatinine Clr Calc Pharmacy 82.4423; Globulin 3.3 g/dL (1.3-4.6); Glomerular Filtration Rate 87.2 mL/min (90-130); Glucose 106 mg/dL (65-115); Lipase 19 U/L (13-60); Osmolality Calculated 293 mOsm/kg (285-295); Potassium 3.5 mmol/L (3.5-5.1); Sodium 141 mmol/L (136-145); Total Bilirubin 0.2 mg/dL (0.15-1.2)
[2024-01-25] MEDS: prochlorperazine 10 mg/2 mL Inj IVP (02:36)
[2024-01-25] MEDS: famotidine 20 mg Tablet 40 MG PO (03:30)
[2024-01-25] MEDS: pantoprazole 40 mg SDV IVP (03:35)
[2024-01-25] MEDS: lidocaine 2% viscous 15 ML, aluminum-mag hydrox-simethicon 30 ML, sucralfate oral liq 1 GM PO (03:40)
[2024-01-25 03:43] LABS: Add Urine Microscopic? YES; Bilirubin Urine Neg (Negative); Blood Urine Neg (Negative); Glucose Urine UA Norm (Normal); Ketones Urine 1+ (Negative); Leukocyte Esterase Urine Negative (Negative); Nitrate Urine Negative (Negative); Protein Urine Trace (Negative); Urine Appearance Clear (CLEAR); Urine Color Dark Yellow (Yellow); Urobilinogen Urine 4 mg/dL (Negative); pH Urine 5 (5-7)
[2024-01-25 03:44] LABS: Bacteria Urine 1+ /hpf; Mucus Urine 1+ /hpf; RBC Urine 0-4 /hpf (0-2)
[2024-01-25 03:54] VITALS: BP 138/92; PULSE 74; O2SAT 100
[2024-01-25 04:07] VITALS: BP 153/90; PULSE 74; O2SAT 98
== END 2024-01-25 04:09 | disposition home or self-care (01) ==
PROVIDERS: Emergency Provider Emergency Medicine; PCP Family Medicine
DX: K29.00 Acute gastritis without bleeding (principal); Z98.84 Bariatric surgery status; Z79.899 Other long term (current) drug therapy
CPT/HCPCS: 36415; 74177; 80053; 81001; 83690; 83735; 85025; 96361; 96374; 96375; 99285; C9113; J0780; J2270; J7030; Q9967

== ENCOUNTER 2024-11-23 06:20 | Outpatient (CLI) | payer OTHER, SELFPAY ==
--- NOTE | 2024-11-23 06:30 | US_ITS ---
WS: [id number] RIGHT UPPER QUADRANT ULTRASOUND HISTORY: Cirrhosis COMPARISON: 10/26/2011, CT 01/25/2024 Liver: 13.0 cm in length. Normal size liver and echogenicity. No bile duct dilatation or mass. Portal Vein: Normal hepatopetal flow with monophasic waveform. Gallbladder: Status post cholecystectomy. CBD: 0.4 cm Pancreas: Normal size and echogenicity. Right kidney: 9.3 cm in length. Normal size and echogenicity. No hydronephrosis or mass. Aorta and IVC: Unremarkable abdominal aorta and IVC. No ascites. US/US abdomen limited [id number] IMPRESSION: 1. Prior cholecystectomy. 2. Otherwise negative.
== END 2024-11-23 06:21 | disposition home or self-care (01) ==
PROVIDERS: PCP Family Medicine; Visit Provider Family Medicine
DX: K75.81 Nonalcoholic steatohepatitis (NASH) (principal); Z90.49 Acquired absence of other specified parts of digestive tract
CPT/HCPCS: 76705

== ENCOUNTER 2024-12-30 08:48 | Outpatient (CLI) | payer OTHER, SELFPAY ==
--- NOTE | 2024-12-30 08:54 | US_ITS ---
WS: [id number] US pelv w/transvag [id number] HISTORY: UNSPECIFIED DYSPAREUNIA COMPARISON: None available. Uterus: 6.8 cm x 4.0 cm x 3.0 cm. Poorly visualized uterus. No fibroid or mass identified. Endometrium: 0.5 cm. Limited but does not appear to be enlarged. Neither ovary is identified. There is significant inspissated fecal material throughout the pelvis surrounding the pelvic structures and obscuring the ovaries. No free fluid in the cul-de-sac. US/US pelv w/transvag [id number] IMPRESSION: 1. Very limited evaluation of the pelvic structures. 2. Normal size uterus. No abnormality identified. 3. Limited evaluation of the endometrium. 4. Neither ovary identified. 5. Large amount of retained inspissated fecal material within the pelvis.
--- NOTE | 2024-12-30 08:54 | MM_ITS ---
WS: [email or web address] BILATERAL SCREENING DIGITAL TOMOSYNTHESIS MAMMOGRAM WITH CAD HISTORY: SCREENING COMPARISON: None available. Bilateral CC and MLO views with tomosynthesis and synthetic mammography submitted. Computer aided detection analyzed. Breast composition: The breasts are heterogeneously dense, which may obscure small masses. No suspicious masses, microcalcifications or architectural distortion. Benign calcifications in each breast. MM/MM scr BI tomosynthesis [id number] IMPRESSION: BI-RADS: 2 - Benign FOLLOW UP: 1 Year Follow-up
== END 2024-12-30 08:49 | disposition home or self-care (01) ==
LOC: RAD 08:49
PROVIDERS: PCP Family Medicine; Visit Provider Nurse Practitioner Family
DX: Z12.31 Encounter for screening mammogram for malignant neoplasm of breast (principal); N94.10 Unspecified dyspareunia
CPT/HCPCS: 76830; 76856; 77063; 77067